=== PATIENT | female | born 1960 | race Caucasian/White ===

== ENCOUNTER → 2018-03-08 07:15 | Outpatient (CLI) | payer MEDICAID, SELFPAY ==
--- NOTE | 2018-03-08 10:50 | NEURO_ITS ---
NCS and/or EMG Patient Report Ordering Doctor: Glenda Saldaña DATE OF SERVICE: 03/08/18 This is a bilateral upper extremity nerve conduction study performed on this 58- year-old female with a history of burning and tingling in her fingers and hands and cold sensation in her hands. The symptoms awaken her from sleep at night and have improved to some extent with wrist braces. Symptoms have been present for approximately 1-1/2 years. There is no neck pain. Symptoms are worse on the right side. Bilateral upper extremity sensory and motor nerve conduction study is performed demonstrating prolongation of the median motor and sensory responses bilaterally worse on the right side, with mild reduction in amplitude and conduction velocities. The ulnar motor and sensory and radial sensory responses are normal. The median F-wave latencies are bilaterally prolonged, worse on the right. Right upper extremity needle electromyography is performed. Muscles evaluated included the first dorsal interosseous, abductor pollicis brevis, brachioradialis, biceps, triceps and deltoid muscles. All muscles demonstrated normal insertional activity with absence of pathologic spontaneous activity. Motor unit potential recruitment pattern and amplitude is normal in all muscles tested. Impression: Abnormal nerve conduction study and EMG of the upper extremities consistent with moderate to severe carpal tunnel syndrome bilaterally worse on the right side.
== END ==
PROVIDERS: Family Provider Family Medicine; PCP Family Medicine; Visit Provider Nurse Practitioner Adult Health
DX: R20.0 Anesthesia of skin (principal); R20.2 Paresthesia of skin
CPT/HCPCS: 95886; 95911

== ENCOUNTER 2018-06-22 12:14 | Emergency (ER) | payer MEDICAID, SELFPAY ==
[2018-06-22 12:15] VITALS: BP 159/109; PULSE 82; RESP 18; TEMP 36.6; O2SAT 99; BMI 36.1
--- NOTE | 2018-06-22 12:39 | VDUE_ITS ---
Reason For Study: LUE pain Left Proximal Left jugular vein is spontaneous, widely patent, phasic, with no intraluminal echogenicity noted. Left subclavian vein is spontaneous, widely patent, phasic, with no intraluminal echogenicity noted. Left Arm Left axillary vein is spontaneous, patent, phasic, competent, compressible and demonstrates augmentation. Left brachial vein is compressible. Left cephalic vein is compressible. Left basilic vein is compressible. Left Lower Arm Left radial vein is compressible. Left ulnar vein is compressible. Interpretation Summary No evidence for acute deep venous thrombosis[left] upper extremity with patent and compressible cephalic and basilic veins. Ordering Physician: Brian Rey Referring Physician: Rolan Ospina Performed By: Ciara Ramesh RVT ?
[2018-06-22 12:49] VITALS: BP 148/95; PULSE 80; RESP 14; O2SAT 98
[2018-06-22] MEDS: Acetaminophen 500 MG Tablet 1000 MG PO (12:57)
--- NOTE | 2018-06-22 13:29 | ED.DCSUM_ITS ---
- ER Visit Summary Date of Service: 06/22/18 Chief Complaint: Fall History of Present Illness: The patient is a [address] Fred ledesma. She reports that 2 days ago she tripped over an uneven sidewalk and landed on left side. She hit her chin on the ground. She reports she has pain there that is 10 out of 10 severity. She has dentures. She reports that they are fitting normally. She denies any malocclusion. No loss of consciousness. She is not on blood thinners. Patient reports that she has left shoulder pain is 8 out of 10 severity. She is concerned because she has redness to her left humerus that began today. Physical Examination: Vitals: Stable. Afebrile. Head: Contusion to the left side of the mentum of her chin. Minimal pain with palpation. No pain with palpation of the angle of her mandible or her TM joints bilaterally. Neck: No vertebral tenderness. Full ROM without difficulty. Cleared by NEXUS criteria. Mild tenderness palpation to the paraspinous musculature on the left. Back: No vertebral tenderness. General: A&O x 3. NAD. Cardiovascular exam: Regular rate and rhythm, no murmur, rub or gallop. Respiratory exam: Chest nontender. No crepitus. Clear to auscultation bilaterally. No wheezes or stridor. Abdominal exam: Soft, nontender, nondistended, normal bowel sounds. No pain in RUQ or LUQ specifically. No peritoneal signs. Extremity: Erythema over the lateral portion of her proximal right bicep. There is warmth present here. She has minimal pain with range of motion. She is neurovascular intact distal sensation light touch less than 2-second catheter refill. No pain with range of motion. Test Results: Patient refused an x-ray. She had a left upper extremity Doppler that was negative. Emergency Department Course and Treatment: Patient was treated with Tylenol and Keflex. She refused stronger pain medications. Treatment Plan: Patient will be discharged on Keflex and instructed to follow-up with her primary care physician in 2 days for a wound check. Return to the emergency department for any worsening symptoms. Disposition: To home in improved and stable condition. Impression: 1. Mechanical fall. 2. Contusion to chin. 3. Cellulitis left arm. This note was generated with [employer] software. It may contain incorrect words, spelling, and punctuation that were not noted in review of the chart prior to signing ED Disposition - Plan for ED Patient: Disposition: Home or Assisted Living Chief Complaint: Fall Instructions: ED Infec Skin Cellulitis Prescriptions: Cephalexin [Keflex] 500 mg PO Q6 #40 capsule Referrals: Kamlesh Ospina MD [Primary Care Provider] - 2 Days for wound check
[2018-06-22 13:34] VITALS: BP 142/80; PULSE 82; RESP 14; O2SAT 98
[2018-06-22] MEDS: Cephalexin 500 MG Capsule PO (13:38)
== END 2018-06-22 13:57 | disposition home or self-care (01) ==
LOC: ED 13:50
PROVIDERS: Emergency Provider Emergency Medicine; Family Provider Family Medicine; PCP Family Medicine
DX: S00.83XA Contusion of other part of head, initial encounter (principal); L03.114 Cellulitis of left upper limb; W01.198A Fall on same level from slipping, tripping and stumbling with subsequent striking against other object, initial encounter; Y93.89 Activity, other specified; Y92.480 Sidewalk as the place of occurrence of the external cause; Y99.9 Unspecified external cause status; E11.9 Type 2 diabetes mellitus without complications; I10 Essential (primary) hypertension; F17.200 Nicotine dependence, unspecified, uncomplicated
CPT/HCPCS: 93971; 99283

== ENCOUNTER 2018-11-15 20:30 | Emergency (ER) | payer MEDICAID, SELFPAY ==
[2018-11-15 20:31] VITALS: BP 159/87; PULSE 70; RESP 18; TEMP 36.7; O2SAT 97; BMI 37.3
--- NOTE | 2018-11-15 20:33 | RAD_ITS ---
STUDY: X-RAY - RIGHT HAND REASON FOR EXAM: Female, 58 years old. Pain TECHNIQUE: 3 view(s) of the hand. COMPARISON: None. FINDINGS: There is no evidence of fracture or dislocation. There are no significant degenerative changes. There are no radiodense foreign bodies. RAD/Hand Min 3 Views IMPRESSION: No fracture or dislocation. Electronically Signed: Marky Hannah, at 21:45 EDT Tel , Service support ,
--- NOTE | 2018-11-15 20:45 | RAD_ITS ---
STUDY: X-RAY - RIGHT RADIUS AND ULNA REASON FOR EXAM: Female, 58 years old. Pain TECHNIQUE: 2 view(s) of the forearm. COMPARISON: None. FINDINGS: There is no evidence of fracture or dislocation. There are no significant degenerative changes. There are no radiodense foreign bodies. RAD/Forearm 2 Views IMPRESSION: No fracture or dislocation. Electronically Signed: Marky Hannah, at 21:44 EDT Tel , Service support ,
--- NOTE | 2018-11-15 21:45 | ED.VISSUMM ---
- ER Visit Summary Date of Service: 11/15/18 Chief Complaint: [Right arm pain] History of Present Illness: The patient is a 58 F [presents with right arm pain that started 4 days ago. Patient denies any trauma. Patient states that she had carpal tunnel surgery on September [address] Lauro Otoole to her right wrist. Patient states that she is been back to work and she has been wearing her braces. Patient describes a pain from her fingertips to the elbow and just onto the upper arm. She describes a burning sensation. Patient states that sometimes it feels like there is a catching when she flexes her wrist and extends it. She denies any fevers. She denies any chest pain or shortness of breath.] Physical Examination: [HEENT-PERRLA, EOMI. Cranial nerves II through XII grossly intact. TMs clear. Mucous membranes moist. No adenopathy. Cardiovascular-regular rate and rhythm without murmur or ectopy Lungs-clear to auscultation, chest wall stable without crepitus or subcu emphysema Abdomen-normoactive bowel sounds, soft, nontender, no rebound or rigidity, no peritoneal signs. Extremities-intact ?4, normal range of motion, normal pulses, atraumatic]. Right arm-patient has diffuse tenderness about the forearm, wrist, and hand. There is no edema or erythema. She is neurovascularly intact. She has a well-healed carpal tunnel scar to the volar aspect of the palmar ligament. Test Results: [X-rays of the right forearm were ordered by the nursing staff via protocol which were read by radiology as normal.] I do not feel her exam is concerning for DVT. Emergency Department Course and Treatment: [Patient will be given a prescription for [place]. Patient advised to follow-up with her orthopedic surgeon within the next 3-5 days. Patient advised to continue using her splints.] Treatment Plan: [Follow-up with orthopedics patient given a prescription for [employer] [place].] Disposition: [Discharged home in stable condition.] Impression: [Right arm pain-etiology uncertain] This note was generated with [employer] software. It may contain incorrect words, spelling, and punctuation that were not noted in review of the chart prior to signing ED Disposition - Plan for ED Patient: Referrals: Kamlesh Ospina MD [Primary Care Provider] -
--- NOTE | 2018-11-15 22:01 | ED.DCSUM_ITS ---
- ER Visit Summary Date of Service: 11/15/18 Chief Complaint: [Right arm pain] History of Present Illness: The patient is a 58 F [presents with right arm pain that started 4 days ago. Patient denies any trauma. Patient states that she had carpal tunnel surgery on September [address] Lauro Otoole to her right wrist. Patient states that she is been back to work and she has been wearing her braces. Patient describes a pain from her fingertips to the elbow and just onto the upper arm. She describes a burning sensation. Patient states that sometimes it feels like there is a catching when she flexes her wrist and extends it. She denies any fevers. She denies any chest pain or shortness of breath.] Physical Examination: [HEENT-PERRLA, EOMI. Cranial nerves II through XII grossly intact. TMs clear. Mucous membranes moist. No adenopathy. Cardiovascular-regular rate and rhythm without murmur or ectopy Lungs-clear to auscultation, chest wall stable without crepitus or subcu emphysema Abdomen-normoactive bowel sounds, soft, nontender, no rebound or rigidity, no peritoneal signs. Extremities-intact ?4, normal range of motion, normal pulses, atraumatic]. Right arm-patient has diffuse tenderness about the forearm, wrist, and hand. There is no edema or erythema. She is neurovascularly intact. She has a well- healed carpal tunnel scar to the volar aspect of the palmar ligament. Test Results: [X-rays of the right forearm were ordered by the nursing staff via protocol which were read by radiology as normal.] I do not feel her exam is concerning for DVT. Emergency Department Course and Treatment: [Patient will be given a prescription for [place]. Patient advised to follow-up with her orthopedic surgeon within the next 3-5 days. Patient advised to continue using her splints.] Treatment Plan: [Follow-up with orthopedics patient given a prescription for [place].] Disposition: [Discharged home in stable condition.] Impression: [Right arm pain-etiology uncertain] This note was generated with [employer] software. It may contain incorrect words, spelling, and punctuation that were not noted in review of the chart davida or to signing ED Disposition - Plan for ED Patient: Referrals: Kamlesh Ospina MD [Primary Care Provider] -
--- NOTE | 2018-11-15 22:03 | DCINST.ED_ITS ---
ED Disposition - Plan for ED Patient: Instructions: ED Neuropathy Peripheral Prescriptions: Hydrocodone Bitart/Apap 5-325 [[place] 5MG-325MG] 1 tab PO Q4H PRN PRN 2 Days #10 tab PRN Reason: Pain Referrals: Kamlesh Ospina MD [Primary Care Provider] - Lauro Otoole MD [STAFF PHYSICIAN] - 3-5 Days
--- NOTE | 2018-11-15 22:04 | DCINST.ED_ITS ---
ED Disposition - Plan for ED Patient: Instructions: ED Neuropathy Peripheral Prescriptions: Hydrocodone Bitart/Apap 5-325 [[place] 5MG-325MG] 1 tab PO Q4H PRN PRN 2 Days #10 tab PRN Reason: Pain Referrals: Lauro Otoole MD [STAFF PHYSICIAN] - 3-5 Days Kamlesh Ospina MD [Primary Care Provider] -
[2018-11-15] MEDS: HYDROcodone Bitartrate/Apap 5/325 Tablet PO (22:20)
[2018-11-15 22:21] VITALS: BP 150/98; PULSE 78; RESP 15; O2SAT 100
== END 2018-11-15 22:22 | disposition home or self-care (01) ==
LOC: ED 21:56
PROVIDERS: Emergency Provider Emergency Medicine; Family Provider Family Medicine; PCP Family Medicine
DX: M79.641 Pain in right hand (principal); M25.531 Pain in right wrist; M79.631 Pain in right forearm; E11.9 Type 2 diabetes mellitus without complications; Z79.84 Long term (current) use of oral hypoglycemic drugs; Z79.899 Other long term (current) drug therapy; Z72.0 Tobacco use
CPT/HCPCS: 73090; 73130; 99282

== ENCOUNTER → 2018-12-06 12:50 | Outpatient (CLI) | payer MEDICAID, SELFPAY ==
[2018-11-15 20:31] VITALS: BMI 37.3
--- NOTE | 2018-12-06 12:55 | VDLE_ITS ---
Reason For Study: RLE PAIN RIGHT LEFT GSV is normal. CFV is compressible, spontaneous, phasic, CFV is compressible, spontaneous, phasic, competent, and demonstrates normal competent and demonstrates normal augmentation. augmentation. FV is compressible, spontaneous, phasic, competent and demonstrates normal augmentation. POP V is compressible, spontaneous, phasic, competent and demonstrates normal augmentation. T/P Trunk is compressible. PTV is compressible. RT PerV is compressible. Procedure Exam performed portable in patient room. A preliminary report was called and/or faxed to Glenda Saldaña DIRECTOR OF PARTNER MARKETING @ 140 pm @ [phone]. Interpretation Summary There is no evidence of right lower extremity deep vein thrombosis. Right greater saphenous vein appears patent and compressible segmentally. Normal flow patterns left common femoral vein. Ordering Physician: Glenda Saldaña Referring Physician: Rolan Ospina Performed By: Haylee Cagle, MATTHEW, RVT
== END ==
PROVIDERS: Family Provider Family Medicine; PCP Family Medicine; Referring Provider Nurse Practitioner Adult Health; Visit Provider Nurse Practitioner Adult Health
DX: M79.604 Pain in right leg (principal)
CPT/HCPCS: 93971

== ENCOUNTER 2020-02-19 18:55 | Emergency (ER) | payer BC, SELFPAY ==
[2020-02-19 18:56] VITALS: BP 157/119; PULSE 81; RESP 15; TEMP 36.7; O2SAT 96; BMI 35.8
--- NOTE | 2020-02-19 19:54 | ED.VISSUMM ---
- ER Visit Summary Date of Service: 02/19/20 Chief Complaint: Foreign body right ear History of Present Illness: The patient is a 59 F Pap smear history diabetes hypertension. Has a piece of her hearing aid stuck in her right ear. This occurred today. No other complaints. Physical Examination: Appearing middle-aged female no distress vital signs stable afebrile. H EENT exam right ear canal on the proximal end she has a piece of rubber stopper from a hearing aid. Otherwise no signs of trauma. I was able to easily remove that with a curved forcep patient tolerated procedure well. After removal there was no signs of trauma or bladder bleeding. No signs of infection. TM was intact. Otherwise exam unremarkable. Lungs are clear. Heart regular rhythm. Test Results: None Emergency Department Course and Treatment: Right ear canal foreign body removal Treatment Plan: If pain follow-up. Disposition: Discharge Impression: Right ear canal foreign body (part of the hearing aid) removal by ER This note was generated with [employer] dictation software. It may contain incorrect words, spelling, and punctuation that were not noted in review of the chart prior to signing ED Disposition - Plan for ED Patient: Referrals: Kamlesh Ospina MD [Primary Care Provider] -
--- NOTE | 2020-02-19 19:55 | ED.DEP ---
ED Disposition - Plan for ED Patient: Disposition: Home or Assisted Living Instructions: ED EAR CANAL Foreign Body Referrals: Kamlesh Ospina MD [Primary Care Provider] - As Needed Additional Instructions: Follow-up if pain, swelling or drainage.
== END 2020-02-19 19:59 | disposition home or self-care (01) ==
PROVIDERS: Emergency Provider Emergency Medicine; PCP Family Medicine
DX: T16.1XXA Foreign body in right ear, initial encounter (principal); W45.8XXA Other foreign body or object entering through skin, initial encounter; Y93.9 Activity, unspecified; Y92.89 Other specified places as the place of occurrence of the external cause; Y99.9 Unspecified external cause status; E11.9 Type 2 diabetes mellitus without complications; I10 Essential (primary) hypertension; Z72.0 Tobacco use
CPT/HCPCS: 99283

== ENCOUNTER 2022-10-07 12:23 | Emergency (ER) | payer OTHER, SELFPAY ==
[2022-10-07 12:24] VITALS: BP 184/108; PULSE 95; RESP 16; TEMP 36; O2SAT 95
[2022-10-07 12:43] VITALS: BMI 35.4
--- NOTE | 2022-10-07 13:06 | EKG12_ITS ---
Test Reason : Blood Pressure : / mmHG Vent. Rate : 072 BPM Atrial Rate : 072 BPM P-R Int : 128 ms QRS Dur : 088 ms QT Int : 398 ms P-R-T Axes : 005 007 039 degrees QTc Int : 435 ms Normal sinus rhythm Nonspecific T wave abnormality Abnormal ECG Confirmed by JAIDEN JENKINS, DENI ([id number]), publications editor BRYSON ZULETA ([id number]) on 10/11/2022 11:05:17 AM Referred By: SHASHANK Confirmed By:DENI HWANG MD
--- NOTE | 2022-10-07 13:11 | EDS_ITS ---
HPI HPI - GI History of Present Illness Chief Complaint: Abd Pain Detail of Chief Complaint: Per predominately epigastric pain that started approximate 2 monts ago wors Informant: patient Abdominal Pain/Flank Pain Onset: Month(s) Context: Sudden Onset Timing: Intermittent and Waxes and wanes Quality: Aching and Cramping Location: Epigastric, RUQ and LUQ Current Severity: Mild Maximum Severity: Severe Worsened by: Food, Movement and - (Palpation) Relieved by: Nothing Nausea/Vomiting/Emesis GI Symptom: Positive for Nausea; Negative for Vomiting Diarrhea/Melena/Hematochezia GI Symptom: Negative for Diarrhea, Melena or Hematochezia Associated Symptoms Associated Symptoms: Negative for Dysuria, Frequency, Hematuria or Urgency Narrative Narrative: Patient is a 62-year-old woman with history of hypertension, type 2 diabetes, hypercholesterolemia who presents with a 2 to 3-month history of abdominal pain predominantly in the upper abdomen. Pain got worse over the last 2 to 3 weeks. Has increased over the past 2 to 3 days. She localizes it predominantly to the epigastric area. She denies history of peptic ulcer disease. She may have history of reflux with esophagitis. She denies black or maroon-colored stool. She states last evening she took Pepto-Bismol with no relief. She states she drove herself to the emergency department. She has had 2 C-sections. Her appendix and gallbladder have not been removed. She reports elevated temperature. She denies chills. She denies headache, visual, ocular auditory symptoms. She denies cardiac or respiratory symptoms. She denies hematemesis or coffee-ground emesis. She denies dysuria, frequency, urgency or hematuria. She denies history of renal or ureterolithiasis. Prior similar symptoms: No Recent Illness/Hospitalization: No PFSH PFSH Medical History no medical history no medical history (Documented in the HPI narrative.) Home Medications topiramate 25 mg tablet 50 mg PO DAILY 05/29/16 [History Last Taken 05/28/16 22:30] atorvastatin 20 mg tablet 40 mg PO QHS 09/13/16 [History Last Taken Unknown] duloxetine 30 mg capsule,delayed release 30 mg PO DAILY 09/13/16 [History Last Taken Unknown] lisinopril 5 mg tablet 5 mg PO DAILY 09/13/16 [History Last Taken Unknown] metformin 500 mg 24 hr tablet,extended release 500 mg PO DAILY 09/13/16 [History Last Taken Unknown] vitamin B complex 1 ea PO DAILY 09/13/16 [History Last Taken Unknown] omeprazole magnesium 20 mg tablet,delayed release (Prilosec OTC) 20 mg PO BID 10 days #20 tabs 10/07/22 [Rx Last Taken Unknown] Allergy/AdvReac Type Severity Reaction Status Date / Time Penicillins [PCN] Allergy Unknown Verified 02/19/20 18:56 codeine AdvReac Nausea/Vom/ Verified 02/19/20 18:56 Diarrhea Surgical History (Updated 10/07/22 @ 13:[address] Nikhil Guillen MD) Previous section Social History (Updated 10/07/22 @ 13:[address] Nikhil Guillen MD) household members: none Smoking Status: Current every day smoker tobacco type: cigarettes substance use type: does not use ROS ROS ED Constitutional Constitutional ED: Denies chills, sweats or weight loss ENT ENT ED: Denies ear pain, rhinorrhea or sore throat Cardiovascular Cardiovascular: Denies chest pain, orthopnea, palpitations, paroxysmal nocturnal dyspnea or racing heartbeat Respiratory/Chest Respiratory/Chest: Denies cough, dyspnea, dyspnea on exertion, orthopnea or paroxysmal nocturnal dyspnea Gastrointestinal Gastrointestinal: Reports abdominal pain and nausea; Denies constipation, diarrhea or melena Genitourinary Genitourinary ED: Denies dysuria, hematuria or urinary frequency Musculoskeletal Musculoskeletal: Denies arthralgias, back pain, myalgias or neck pain Integumentary Denies Abrasions or rash Neurologic Neurologic: Denies headache(s), paresthesias or weakness Psychiatric Psychiatric: Denies anxiety or depression Endocrine Endocrinology: Denies polydipsia, polyphagia or polyuria Hematologic/Lymphatic Hematologic/Lymphatic: Denies easy bleeding or easy bruising EXAM Physical Exam Const Vital Signs: 10/07/22 12:24 Temperature 96.8 F L Temperature Source Temporal Pulse Rate 95 Respiratory Rate 16 Blood Pressure 184/108 H Blood Pressure Mean 133 Pulse Ox 95 Oxygen Delivery Method Room Air Positive well nourished, well developed and obese Constitutional Narrative: Patient does not appear well. She does not appear toxic. General Appearance ED: well developed; Negative for NAD or pallor Nutritional Appearance: obese HEENT Reports TM's clear and moist mucous membranes HEENT Narrative: Nares patent. Posterior pharynx out erythema or exudate. normocephalic and atraumatic Tympanic Membrane ED: Yes TM's clear Eyes PERRL and EOMs intact bilaterally General Eye ED: Negative for pale conjunctiva or scleral icterus Neck no lymphadenopathy, supple and no JVD Resp normal respiratory effort and clear to auscultation bilaterally Cardio regular rate, regular rhythm, S1 normal heart sound, S2 normal heart sound and no murmurs GI non-distended and no masses; Negative for non-tender Inspection: Negative for abdominal distention Auscultation: hypoactive bowel sounds Palpation: soft, tender epigastric and LUQ and guarding LUQ; Negative for hepatomegaly, splenomegaly, hernia, mass, pulsatile mass or rebound tenderness present Back/Spine no CVA tenderness Extremity full ROM General Extremety ED: Negative for edema or tenderness General Extremity: Negative for edema Neuro CN's II-XII intact bilaterally, moves all extremities and no sensory deficits noted Sensorium / Orientation: alert Psych mental status grossly normal and thought process normal Skin no wounds General Skin Exam: Negative for jaundice or pallor Lesions: no lesions Rashes: no rashes MDM MDM MDM Narrative Medical decision making narrative: Prior records are predominantly ER records. There is at office visit by Dr. Marx for akathisia. This is not pertinent or relevant to patient's presentation. Differential diagnosis would include GERD, esophagitis, gastritis, peptic ulcer disease, biliary disease, pancreatitis since pain is predominately left upper quadrant. To evaluate but she was medicated with Pepcid since she drove her self to the emergency department. Liver, lipase, CBC and electrolyte panel were obtained. The [place] panel was obtained to assess glucose and anion gap as well as renal function. Liver and lipase to assess for biliary disease and pancreatitis. CBC to assess white count differential. Lab Data Attestation: I reviewed the patient's lab results. Lab results narrative: CBC reveals elevated H&H of 59 and 47.2. Comprehensive metabolic panel reveals slight elevation in glucose of 120. BUN is elevated 27 with a BUN/creatinine ratio of 2091. GFR is normal. Lactate is normal. Transaminases are normal. Lipase is normal. Labs: Laboratory Results - last 24 hr 10/07/22 10/07/22 10/07/22 12:39 12:39 13:18 WBC 7.2 RBC 5.29 Hgb 15.9 H Hct 47.2 H MCV 89.2 MCH 30.1 MCHC 33.7 RDW Std Deviation 43.0 RDW Coeff of Shyanne 13.2 Plt Count 274 MPV 10.5 Immature Gran % (Auto) 0.100 Neut % (Auto) 62.1 Lymph % (Auto) 26.6 [place] % (Auto) 10.2 H Eos % (Auto) 0.7 Baso % (Auto) 0.3 Absolute Neuts (auto) 4.5 Absolute Lymphs (auto) 1.91 Nucleated RBC % 0 Sodium 142 Potassium 3.7 Chloride 107 Carbon Dioxide 26.0 Anion Gap 9 BUN 27 H Creatinine 0.93 Estim Creat Clear Calc 52.55 Est GFR (MDRD) Af Amer 78 Est GFR (MDRD) Non-Af 65 BUN/Creatinine Ratio 28.9 H Glucose 120 H Lactic Acid 1.7 Calcium 10.5 H Total Bilirubin 0.30 Direct Bilirubin 0.08 AST 15 ALT 25 Alkaline Phosphatase 68 Total Protein 8.3 H Albumin 4.0 Globulin 4.3 H Lipase 151 Treatment and Re-Evaluation Narrative: Patient was informed of her laboratory results at 1545. Patient is sitting up smiling. Her pain is resolved. She was informed of results. Suspect this is due to peptic ulcer disease. She was referred to Dr. Albarran and she does not see a audience development manager. She also was prescribed PPI. Patient is planned restricts what meds can be given. Meds that were on formulary for patient's insurance plan and still received a popup that states not covered. Discharge Plan Triage Chief Complaint: Abd Pain ED Provider: Nikhil Guillen Dx/Rx/DC Orders Clinical Impression: Concern about peptic ulcer disease without diagnosis, Acute epigastric pain, Type 2 diabetes mellitus, Hypertension Instructions: ED Epigastric Pain Uncertain Cause Prescriptions: New omeprazole magnesium [Prilosec OTC] 20 mg tablet,delayed release (DR/EC) 20 mg PO BID 10 Days Qty: 20 0RF No Action topiramate 25 MG tablet 50 mg PO DAILY Label Comments: MIGRAINE atorvastatin 20 MG tablet 40 mg PO QHS lisinopril 5 MG tablet 5 mg PO DAILY vitamin B complex 1 EACH capsule 1 ea PO DAILY duloxetine 30 MG capsule 30 mg PO DAILY metformin 500 MG tablet,ER stacey.retention 24 hr 500 mg PO DAILY Primary Care Provider: Shaneka Brady Referrals: Kamlesh Ospina MD [Non-Staff] - Friend,Heber, DO [Med Staff - Active Staff] - 1-2 Weeks Disposition Disposition: Home, Self Care
[2022-10-07] MEDS: Famotidine 200 MG/20 ML MDV 20 MG in 0.9% Normal Saline (Pres. free 8 ML 300 MG IV (13:31)
[2022-10-07 13:32] LABS: Absolute Lymphocyte Count 1.91 X10^3/uL (0.83-4.51); Absolute Neutrophil Count 4.5 X10^3/uL (2.0-7.7); Basophil# 0.02 X10^3/uL; Basophil% 0.3 % (0-1); Eosinophil# 0.05 X10^3/uL; Eosinophils% 0.7 % (0-5); Hematocrit 47.2 % (37-47); Hemoglobin 15.9 g/dL (12.0-15.0); Lymphocyte # 1.91 X10^3/ul (0.83-4.51); Lymphocyte % 26.6 % (19-41); Mean Corp Hgb Conc 33.7 g/dL (32-36); Mean Corpuscular Hgb 30.1 pg (27.0-32.0); Mean Corpuscular Volume 89.2 fL (81-99); Mean Platelet Vol. 10.5 fl (6.2-12.0); Monocyte# 0.73 X10^3/uL; Monocyte% 10.2 % (0-10); NRBC Flagged by Analyzer 0 % (0-5); Neutrophil # 4.46 X10^3/uL (2.7-7.7); Neutrophil % 62.1 % (47-70); Platelet Count 274 K/mm3 (150-450); RBC Distribution Width CV 13.2 % (11.6-14.6); Red Blood Count 5.29 M/mm3 (4.2-5.4); White Blood Count 7.2 K/mm3 (4.4-11.0)
[2022-10-07 13:41] LABS: AST(SGOT) 15 U/L (15-37); Alanine Aminotransfer ALT/SGPT 25 U/L (13-56); Alkaline Phosphatase 68 U/L (45-117); Anion Gap 9 (5-15); BUN 27 mg/dL (7-18); BUN/Creat Ratio 28.9 RATIO (10-20); Bilirubin, Direct 0.08 mg/dL (0.00-0.30); Calcium,Total 10.5 mg/dL (8.5-10.1); Chloride 107 mmol/L (98-107); Creatinine, Serum 0.93 mg/dL (0.55-1.02); EST Glomerular Filtration Rate 65 mL/min (>60); Est Glom Filt Rate - Afr Amer 78 mL/min (>60); Estimated Creatinine Clearance 52.55 ml/min; Globulin 4.3 g/dL (2.2-4.2); Glucose 120 mg/dL (74-106); Lipase 151 U/L (73-393); Potassium 3.7 mmol/L (3.5-5.1); Protein, Total 8.3 g/dL (6.4-8.2); Sodium Level 142 mmol/L (136-145)
[2022-10-07 13:53] LABS: Lactic Acid 1.7 mmol/L (0.4-1.9)
[2022-10-07] MEDS: Ondansetron 4 MG/2 ML Vial IV (15:07)
[2022-10-07 16:43] VITALS: BP 134/77; PULSE 62; RESP 15; O2SAT 98
== END 2022-10-07 16:44 | disposition home or self-care (01) ==
PROVIDERS: Emergency Provider Emergency Medicine; PCP Internal Medicine; Visit Provider Emergency Medicine
DX: R10.13 Epigastric pain (principal); E11.9 Type 2 diabetes mellitus without complications; E78.00 Pure hypercholesterolemia, unspecified; I10 Essential (primary) hypertension; R19.7 Diarrhea, unspecified; F17.210 Nicotine dependence, cigarettes, uncomplicated; E66.9 Obesity, unspecified
CPT/HCPCS: 80048; 80076; 83605; 83690; 85025; 93005; 96374; 96375; 99283; A4216; J2405; J3490

== ENCOUNTER 2022-11-12 06:58 | Day surgery (SDC) | payer OTHER, SELFPAY ==
[2022-11-12] VITALS (8 sets, daily range): BP systolic 120–155; BP diastolic 80–89; PULSE 74–99; RESP 16–18; TEMP 36.6–36.9; O2SAT 90–97; BMI 37.1
--- NOTE | 2022-11-12 07:29 | HP.PCM_ITS ---
History and Physical Date of Admission: 11/12/22 Date of Service:? 11/04/22 MR#: [id number] Acct: [id number] Name:ADELINA GRAF Rep #: [id number] : 1960 ? ? Provider: Dr. Hilda Varela MD Age/Sex:? 62/F ? ? Location: [facility] [place] Status: Signed Intake Vital Signs ? 10/07/2311:24 11/04/2308:41 Height 5 ft 3 in 5 ft 2 in Weight: ? 204 lb 4 oz BMI ? 37.3 BP 184/108 H 138/81 H Blood Pressure Location ? Rt brachial Position ? Sitting Respiration 16 18 Pulse 95 87 Pulse Source ? NIBP Temp 96.8 F L 98.3 F Temp Source Temporal Temporal Pulse Oximetry (%) 95 97 Oxygen Delivery Method ? room air Intake Visit Reasons:?GALLBLADDER Chief Complaint: gall stones Dispatcher Tugboat Required: No Is patient in pain?: No Allergies Penicillins [PCN] Allergy (Verified 11/04/22 09:34) Unknowncodeine Adverse Reaction (Verified 11/04/22 09:34) Nausea/Vom/Diarrhea Medications topiramate 25 mg tablet 50 mg PO DAILY 05/29/16 [History Confirmed 11/04/22] atorvastatin 20 mg tablet 40 mg PO QHS 09/13/16 [History Confirmed 11/04/22] vitamin B complex 1 ea PO DAILY 09/13/16 [History Confirmed 11/04/22] omeprazole magnesium 20 mg tablet,delayed release (Prilosec OTC) 20 mg PO BID 10 days #20 tabs 10/07/22 [Rx Confirmed 11/04/22] dulaglutide 1.5 mg/0.5 mL subcutaneous pen injector (Trulicity) ml subcut 11/04/22 [History Confirmed 11/04/22] nicotine 21 mg/24 hr daily transdermal patch 1 patch transdermal DAILY 11/04/22 [History Confirmed 11/04/22] ondansetron 4 mg disintegrating tablet 4 mg PO BID PRN 11/04/22 [History Confirmed 11/04/22] venlafaxine 150 mg capsule,extended release 24 hr 150 mg PO DAILY 11/04/22 [History Confirmed 11/04/22] Is last menstrual period known: No Post menopausal: Yes Patient : No PFSH Medical History?(Updated 11/04/22 @ 13:[address] Hilda Varela MD) Depression Diabetes Osteoarthritis Surgical History?(Updated 11/04/22 @ 09:40 by Jasmin Farmer) History of bladder repair surgery History of colonoscopy (~2020) History of ear surgery History of facial surgery History of left salpingo-oophorectomy (~1991) History of tonsillectomy Hx of hand surgery Previous section Family History?(Updated 11/04/22 @ 09:40 by Jasmin Farmer) Father Cancer Diabetes HypertensionDaughter Thyroid disorder Seizures Bleeding disorder Social History?(Updated 10/07/22 @ 13:[address] Nikhil Guillen MD) household members:? none Smoking Status:? Current every day smoker tobacco type: cigarettes substance use type:? does not use HPI HPI HPI: 62-year-old female presents due to cholelithiasis, epigastric pain.? Patient initially seen in the ER with epigastric pain nausea and vomiting patient states that pain started about 10 AM on the day of the ER visit patient ate at 6 AM previous to that.? Patient states she was having nausea vomiting at night and having an acid taste/nausea for months previous.? Patient states she was taking Pepto-Bismol regularly August through September.? Patient had increased epigastric pain at that time.? Currently patient states when he has some soreness in the epigastric region as she is currently on omeprazole 40 mg p.o. daily and famotidine 10 mg nightly.? Patient had an EGD about 20 years ago.? At that time she was having possible bowel obstruction some dysphagia symptoms.? Patient states she has bowel movements every other day and they are formed.? Patient did have a gallbladder ultrasound which showed multiple gallstones and a fatty liver and showed a 3 mm wall per report. ROS General General: Yes fatigue; No weight change, appetite, colon cancer, breast cancer or weakness HEENT HEENT: No difficulty swallowing, eye injury, eye surgery, swollen glands or hoarseness Endo Endocrine: Yes diabetes mellitus; No thyroid disease, thyroid cancer, Hair loss, heat intolerance or cold intolerance Musc Musculoskeletal: Yes arthritis; No back problems, rheumatoid arthritis, gout or joint pain Cardio Cardiovascular: No murmur, pacemaker, heart disease, atrial fibrillation, high blood pressure, heart attack, heart stent, palpitations, shortness of breat with exertion or chest pain Psych Psychiatric: Yes depression; No anxiety or hearing voices Resp Respiratory: No shortness of breath, No sleep apnea, No cough, No COPD, No asthma, No emphysema and No wheezing Gastro Gastrointestinal: Yes abdominal pain, Yes nausea or vomiting, Yes diarrhea, No constipation, No blood in stool, Yes acid reflux, No hemorrhoids, No ulcers, Yes gallbladder problem and No black,tarry stools Talib Hematologic: No blood thinners, No blood disorders, No bleeding, No anemia and No blood clots Neuro Neurologic: No weakness Exam Const General: cooperative, healthy appearing and no acute distress HENWI Head: normal to inspection Resp Effort & Inspection: normal respiratory effort Cardio Rate: regular rate GI Inspection: non-distended Palpation: soft, no guarding, no hernias and tender in the epigastrum (Mild) and in the LUQ (Mild) Skin General: no rashes or lesions noted Neuro General: patient oriented x3 Extrem General: no clubbing, cyanosis or edema Psych Affect: normal affect Assessment and Plan Assessment and Plan (1) GERD (gastroesophageal reflux disease): ?Status:?Acute (2) Epigastric abdominal pain: ?Status:?Acute (3) LUQ abdominal pain: ?Status:?Acute (4) Gallstones: ?Status:?Acute Plan Did personally reviewed ultrasound as well as reviewed with patient. Discussed with patient that her symptoms sound more like stomach in etiology as the pain occurs in the middle of the night or before she is even eaten.? Patient has been on omeprazole and famotidine and the pain has been improved.? Patient has not needed Zofran for 2 weeks.? Patient denies any history of right upper quadrant epigastric pain about an abnormal her hour after eating fatty or greasy foods.? Patient is able to eat cheese with no issue almond milk no issue. I have discussed the above with the patient. I have offered the patient esophagogastroduodenoscopy for evaluation. I have explained the risks/benefits of the procedure and described the procedure.? I have discussed the risks with the patient, including but not limited to:? infection, bleeding, perforation of the GI tract requiring adrianne rgency surgery, inability to complete the procedure, injury to any internal organs, complications of anesthesia, etc. - the patient understands and agrees to proceed. I have answered all the patient's questions to the patient's satisfaction and the patient has no further questions. Did review the symptoms of gallbladder disease with the patient.? Discussed that she could have both issues as well currently I do think her stomach is causing more of her issues.? We will plan to do an EGD--- if she still continues to have symptoms would possibly consider taking on her gallbladder due to the large stones as well as diabetic. Reviewed the anatomy with the patient and discussed the procedure: laparoscopic cholecystectomy with possible cholangiograms, possible open. Review risks incl uding but not limited to bleeding, infection, hernia, bile leak, retained gallstones requiring another procedure ERCP- Endoscopic Retrograde Cholangiopancreatography, injury to another organ (bile ducts, common bile duct, small bowel, etc.) and conversion to an open procedure. All questions were answered. Hilda Varela M.D. Pager: [phone] [facility] [address] [place] [address], [address] [place] [address] Office: [phone] Coding Level of Care Code Off vis,new,level 4 Diagnoses GERD (gastroesophageal reflux disease)? K21.9 Epigastric abdominal pain? R10.13 LUQ abdominal pain? R10.12 Gallstones? K80.20 11/05/22 1553 <Electronically signed by Hilda Varela MD> Date Hilda Varela MD
[2022-11-12] MEDS: Lactated Ringers 1,000 ML 15 ML IV (07:30)
--- NOTE | 2022-11-12 08:15 | EGD_PTH ---
PATIENT: ADELINA SADLER LOC: EN U#:[id number] AGE/SX: 62/F ROOM: RE11/12/[address]: Dr. Hilda Varela MD : 1960 BED: DIS: 11/12/2022 SPEC #: [id number] RECD: 11/12/22 10:17 STATUS: BEENA BRENDEN #: [id number] MITCHELL: 11/12/22 08:[address]: Hilda Varela DEPT: SURGICAL PATHOLOGY RECD BY: Siomara Moura ENTERED: 11/12/22 13:05 SP TYPE: EGD BIOPSY OT DR: Dr. Shaneka Brady MD Tissues: A - Pylorus B - Esophagus, NOS Procedures: Special Stain Group II Surgery Specimen Level IV Alcian Blue/PAS (control) HEADER OPERATION: EGD ([facility]), biopsy PRE-OP DIAGNOSIS: GERD, epigastric abdominal pain, LUQ abdominal pain, gallstones TISSUE SUBMITTED: A - Biopsy prepyloric for H. pylori and path, B - Biopsy Gastroesophageal junction MICROSCOPIC DIAGNOSIS A. Stomach, prepyloric region, biopsy: Mild chronic gastritis. See comment. B. Gastroesophageal junction, biopsy: Mild chronic inflammation. Focal goblet cell metaplasia. No evidence of dysplasia. See comment. AM:shyann 11/15/2022 COMMENT A. The results of immunohistochemistry for Helicobacter pylori will be reported separately ([id number]). B. Immunohistochemistry ([id number]) for P53 and Ki-67 will be performed and results will be reported separately. Alcian blue/PAS stain with matched control supports the above diagnosis. MICROSCOPIC DESCRIPTION Slides are reviewed. GROSS DESCRIPTION A - Received in fixative is one container labeled with the patient's name and designated prepyloric. The specimen consists of one irregular fragment of light means soft tissue that measures 0.3 x 0.3 x 0.1 cm. The specimen is totally submitted in one cassette. B - Received in fixative is one container labeled with the patient's name and designated biopsy GE junction. The specimen consists of two irregular fragments of light means soft tissue that in aggregate measure 0.6 x 0.3 x 0.1 cm. The specimen is totally submitted in one cassette. / KAYLEY:shyann 11/12/2022 TC:3 CPT: 30360 x2, 05240
--- NOTE | 2022-11-12 08:15 | IMM_PTH ---
PATIENT: ADELINA SADLER LOC: EN U#:[id number] AGE/SX: 62/F ROOM: RE11/12/[address]: Dr. Hilda Varela MD : 1960 BED: DIS: 11/12/2022 SPEC #: [id number] RECD: 11/12/22 14:04 STATUS: BEENA BRENDEN #: [id number] MITCHELL: 11/12/22 08:[address]: Hilda Varela DEPT: IMMUNOHISTOCHEMISTRY RECD BY: Radha Escobar ENTERED: 11/12/22 14:05 SP TYPE: IMMUNO OTHR DR: Dr. Shaneka Brady MD Tissues: A - Pyloric antrum B - Gastric mucous membrane Procedures: H Pylori (initial) P53 (initial) KI-67 (add) PHYSICIAN & INSTITUTION [place] [id number] SPECIMEN INFORMATION: Tissue Source: A ? Prepyloric biopsy, B ? Gastroesophageal junction biopsy Clinical Info: GERD, epigastric abdominal pain, LUQ abdominal pain, gallstones Specimen Number: [id number] A & B CPT code: 02178 x2, 45635 METHODOLOGY: Deparaffinized sections of prefer/formalin-fixed tissue or PAP/DQ stained slides are incubated with monoclonal/polyclonal antibodies/oligonucleotide probes. Localization is made via biotin free immunoperoxidase method. Appropriate controls are performed and reacted as expected. Results on target cell population are indicated in the following table: RESULTS: ANTIBODY / CLONE RESULT Block A H Pylori (polyclonal) negative Block B P53 (DO-7) negative Ki-67 (30-9) negative These tests were developed and their performance characteristics determined by [facility]. They may not have been cleared or approved by the U.S. Food and Drug Administration. The FDA has determined that such clearance or approval is not necessary. The above immunohistochemical/dualISH markers are ordered and reviewed by the Pathologist. INTERPRETATION: A. Prepyloric biopsy: Negative for Helicobacter pylori organisms. B. Gastroesophageal junction, biopsy: No evidence of dysplasia. AM:shyann 11/16/2022
--- NOTE | 2022-11-12 09:02 | OP.EGD_ITS ---
Patient Name: Deepa Ricardo Procedure Date: 11/12/2022 8:22 AM Date of : 1960 Age: 62 Procedure: Upper GI endoscopy Indications: Heartburn Providers: Hilda Varela MD Referring MD: Hilda Varela MD Medicines: Monitored Anesthesia Care Patient Profile: This is a 62 year old female. Complications: No immediate complications. Procedure: Pre-Anesthesia Assessment: - Prior to the procedure, a History and Physical was performed, and patient medications and allergies were reviewed. The patient's tolerance of previous anesthesia was also reviewed. The risks and benefits of the procedure and the sedation options and risks were discussed with the patient. All questions were answered, and informed consent was obtained. Prior Anticoagulants: The patient has taken no previous anticoagulant or antiplatelet agents. ASA Grade Assessment: Per anesthesia. After reviewing the risks and benefits, the patient was deemed in satisfactory condition to undergo the procedure. After obtaining informed consent, the endoscope was passed under direct vision. Throughout the procedure, the patient's blood pressure, pulse, and oxygen saturations were monitored continuously. The Endoscope was introduced through the mouth, and advanced to the second part of duodenum. The upper GI endoscopy was accomplished without difficulty. The patient tolerated the procedure well. Scope In: 8:32:15 AM Scope Out: 8:39:00 AM Total Procedure Duration Time 0 hours 6 minutes 45 seconds Findings: The Z-line was irregular and was found 35 cm from the incisors. Biopsies were taken with a cold forceps for histology. The examined duodenum was normal. Moderately erythematous mucosa without bleeding was found in the prepyloric region of the stomach. Biopsies were taken with a cold forceps for histology. Biopsies were taken with a cold forceps for Helicobacter pylori cultures. A large amount of food (residue) was found in the gastric body. Impression: - Z-line irregular, 35 cm from the incisors. Biopsied. - Normal examined duodenum. - Erythematous mucosa in the prepyloric region of the stomach. Biopsied. - A large amount of food (residue) in the stomach. Recommendation: - Await pathology results. - Discharge patient to home. - Resume previous diet. - Continue present medications. - Use sucralfate tablets 1 gram PO QID for 2 weeks. Procedure Code(s): --- Professional --- 98364, Esophagogastroduodenoscopy, flexible, transoral; with biopsy, single or multiple Diagnosis Code(s): --- Professional --- K22.8, Other specified diseases of esophagus K31.89, Other diseases of stomach and duodenum R12, Heartburn CPT copyright 2017 [employer]. All rights reserved. The codes documented in this report are preliminary and upon salesperson yard goods review may be revised to meet current compliance requirements. MD Hilda Solano MD 11/12/2022 9:02:18 AM This report has been signed electronically. Number of Addenda: 0 Note Initiated On: 11/12/2022 8:22 AM
--- NOTE | 2022-11-12 09:03 | OP.CCLET_ITS ---
11/12/2022 Shaneka Brady Md Re : Upper GI endoscopy procedure for Deepa Valdez Caitlyn This procedure was performed on Saturday, November 12, 2022. My impressions and recommendations are as follows: Impressions : - Z-line irregular, 35 cm from the incisors. Biopsied. - Normal examined duodenum. - Erythematous mucosa in the prepyloric region of the stomach. Biopsied. - A large amount of food (residue) in the stomach. Recommendations : - Await pathology results. - Discharge patient to home. - Resume previous diet. - Continue present medications. - Use sucralfate tablets 1 gram PO QID for 2 weeks. My findings are described in the full procedure note, which is enclosed. If I can be of further assistance, please feel free to contact me at Doctor phone number(s): , Work: . Sincerely, MD Hilda Solano MD 11/12/2022 9:02:18 AM This report has been signed electronically.
[2022-11-12 09:26] LABS: Bedside Glucose 126 mg/dL (74-106)
== END 2022-11-12 09:55 | disposition home or self-care (01) ==
LOC: EN 06:59 → AC 07:01
PROVIDERS: PCP Internal Medicine; Referring Provider Surgery; Visit Provider Surgery
PROC: 0DJ08ZZ Inspection of Upper Intestinal Tract, Via Natural or Artificial Opening Endoscopic (ICD-10-PCS; CPT 43235; principal; 2022-11-12 08:10)
DX: K80.20 Calculus of gallbladder without cholecystitis without obstruction (principal); E11.9 Type 2 diabetes mellitus without complications; K21.9 Gastro-esophageal reflux disease without esophagitis; R10.13 Epigastric pain; K31.89 Other diseases of stomach and duodenum; K22.89 Other specified disease of esophagus; F32.A Depression, unspecified; F17.210 Nicotine dependence, cigarettes, uncomplicated
CPT/HCPCS: 43239; 82962; 88305; 88313; 88341; 88342; J7120; J2405

== ENCOUNTER → 2023-01-25 | Outpatient (CLI) | payer OTHER, SELFPAY ==
--- NOTE | 2023-01-25 12:52 | NM_ITS ---
CLINICAL: 62-year-old female with history of bezoar. SEMI-SOLID PHASE 99m Tc SULFUR COLLOID GASTRIC EMPTYING STUDY COMPARISON: None available FINDINGS: The patient was administered 1.1 mCi of 99m Tc sulfur colloid mixed with oatmeal and consumed per os. Image acquisitions in the anterior-posterior projections were obtained for 34.74 minutes. There is prompt visualization of the stomach. There is no gastroesophageal reflux identified. The T ? raw data emptying was calculated to be 34.74 minutes, (Normal: 12-56 minutes). NM/Gastric Emptying Study IMPRESSION: 1. NORMAL 99m Tc sulfur colloid semi-solid phase (oatmeal) gastric emptying imaging examination. A. There is normal and preserved semi-solid phase gastric emptying compared to normal controls. (Aaron et al, J Nucl Med Tech 38: 186, 2010). Electronically Signed: Ray Bueno, at 21:05 EDT ,
== END | disposition home or self-care (01) ==
PROVIDERS: PCP Internal Medicine; Referring Provider Nurse Practitioner Adult Health; Visit Provider Nurse Practitioner Adult Health
DX: K31.89 Other diseases of stomach and duodenum (principal)
CPT/HCPCS: 78264; A9541

== ENCOUNTER 2023-04-26 17:35 | Emergency (ER) | payer OTHER, SELFPAY ==
[2023-04-26 17:37] VITALS: BP 203/92; PULSE 67; RESP 24; TEMP 36.2; O2SAT 95; BMI 38.9
[2023-04-26 17:48] VITALS: O2SAT 97
--- NOTE | 2023-04-26 17:53 | EDS_ITS ---
HPI History of Present Illness Chief Complaint: Shortness of Breath Informant: patient Narrative Narrative: 63-year-old female presents to the emergency room with 4 days of cough. Patient states on Tuesday she began to have cough and a hoarse voice along with sore throat. She states that she has coughed so much that her lower right and left rib cage is sore and is worse with movement and cough. She has been taking Mucinex even though Im a diabetic. She notes that she has had a temperature of around 100 degrees during this timeframe as well. No vomiting. She notes diarrhea because of the sugar and the Mucinex. She states that any sugar will give her diarrhea. She denies any rashes. She is a smoker. She denies history of chronic bronchitis or emphysema. [facility] Medical History Anxiety Bladder disease Depression Depression Diabetes Diabetes Dietary restriction Fatty liver Former smoker Gastric reflux History of edema History of stress test Hypertension Injury of head and neck Leg cramps Loss of hearing Migraine headache Osteoarthritis Restless legs Vertigo Wears dentures Wears glasses Home Medications topiramate 25 mg tablet 50 mg PO QHS 05/29/16 [History Last Taken 05/28/16 22:30] atorvastatin 20 mg tablet 40 mg PO QHS 09/13/16 [History Last Taken Unknown] vitamin B complex 1 ea PO DAILY 09/13/16 [History Last Taken Unknown] dulaglutide 1.5 mg/0.5 mL subcutaneous pen injector (Trulicity) 1.5 mg subcut MO 11/04/22 [History Last Taken Unknown] nicotine 21 mg/24 hr daily transdermal patch 1 patch transdermal DAILY 11/04/22 [History Last Taken Unknown] ondansetron 4 mg disintegrating tablet 4 mg PO BID PRN Nausea 11/04/22 [History Last Taken Unknown] venlafaxine 150 mg capsule,extended release 24 hr 150 mg PO DAILY 11/04/22 [History Last Taken Unknown] oxybutynin chloride 5 mg tablet 5 mg PO DAILY 11/11/22 [History Last Taken 11/12/22 06:30] ropinirole 2 mg tablet 2 mg PO QHS 11/11/22 [History Last Taken Unknown] omeprazole 40 mg capsule,delayed release 40 mg PO QAM #90 caps 12/03/22 [Rx Last Taken Unknown] Allergy/AdvReac Type Severity Reaction Status Date / Time Penicillins [PCN] Allergy Unknown Verified 04/26/23 17:37 codeine AdvReac Nausea/Vom/ Verified 04/26/23 17:37 Diarrhea Family History Father Cancer Diabetes Hypertension Daughter Thyroid disorder Seizures Bleeding disorder Surgical History History of bladder repair surgery History of colonoscopy (~2020) History of ear surgery History of facial surgery History of left salpingo-oophorectomy (~1991) History of tonsillectomy Hx of hand surgery Previous section Social History household members: none Smoking Status: Light Smoker (<10/day) substance use type: does not use ROS ROS ED Constitutional Constitutional ED: Reports chills and fever(s); Denies weight loss Eyes Eyes: Denies change in vision or diplopia ENT ENT ED: Reports sore throat; Denies ear pain or rhinorrhea Cardiovascular Cardiovascular: Reports chest pain; Denies orthopnea, palpitations or racing heartbeat Respiratory/Chest Respiratory/Chest: Reports cough, dyspnea and dyspnea on exertion; Denies orthopnea Gastrointestinal Gastrointestinal: Denies abdominal pain, diarrhea, nausea or vomiting Genitourinary Genitourinary ED: Denies dysuria, hematuria or urinary frequency Musculoskeletal Musculoskeletal: Denies arthralgias or myalgias Integumentary Denies abscess or rash Neurologic Neurologic: Denies headache(s) or weakness Psychiatric Psychiatric: Denies anxiety, depression, suicidal ideation or suicidal thoughts Endocrine Endocrinology: Denies polydipsia, polyphagia or polyuria Allergic/Immunologic Allergic/Immunologic ED: Denies mouth swelling, tongue swelling or urticaria EXAM Physical Exam Narrative Exam Narrative: Patient speaks with an apparent hoarse voice (forced expiration). Const Vital Signs: 04/26/23 17:37 04/26/23 17:48 04/26/23 17:58 Temperature 97.2 F L Temperature Source Temporal Pulse Rate 67 67 Respiratory Rate 24 H 16 Respiratory Effort Short of Breath Respiratory Depth Shallow Respiratory Pattern Tachypnea Normal Blood Pressure 203/92 H Blood Pressure Mean 129 Pulse Ox 95 Oxygen Delivery Method Room Air Positive well nourished, well developed and obese General Appearance ED: well developed Nutritional Appearance: obese HEENT Reports normocephalic, head/scalp atraumatic and moist mucous membranes Eyes PERRL and EOMs intact bilaterally Neck no lymphadenopathy, supple and no JVD Chest Wall Chest Narrative: Chest tender to palpation of the anterior mid axillary lower ribs. Resp normal respiratory effort Auscultation: wheezes expiratory wheezes and inspiratory wheezes Cardio regular rate, regular rhythm and no murmurs GI normal to inspection, nondistended, normoactive bowel sounds and non-tender Palpation: soft Back/Spine no CVA tenderness and normal ROM Extremity normal to inspection General Extremety ED: Negative for edema General Extremity: Negative for edema Neuro oriented x3 and CN's II-XII intact bilaterally Sensorium / Orientation: alert Motor Exam: strength 5/5 throughout Psych mental status grossly normal Psych Narrative: Patient peers and anxious. She is stating that she has been choked by the ground though the ground is untied and hanging loosely around her neck. Mood & Affect: Negative for depressed or tearful Skin no rashes or lesions noted and no wounds MDM MDM MDM Narrative Medical decision making narrative: My interpretation of the chest x-ray is no acute process. White count is normal at 6.3 with a hemoglobin of 13.3 platelet count is 217. COVID/influenza test is negative. A dose of Toradol was given for the chest wall pain. Patient received a DuoNeb for her wheezing. Clinically I do not think this is a pulmonary embolism. She is not tachycardic. she is not hypoxic. The chest pain is reproducible. She has not had any recent surgery or trauma. No unilateral leg swelling. No exogenous hormonal use. Given her wheezing and her cough and her fever at home infectious etiology with bronchospasm is more likely. On repeat examination the patient's lung sounds are clear she feels significantly better and is able to take a bit better deeper breath. Her voice is improved. We are going to teach her how to use albuterol MDI with spacer. I will give her dose of prednisone. I do not think that this is bacterial in nature. I think this most likely viral. I will place her on burst dose prednisone and the albuterol MDI. Would recommend ibuprofen for chest pain as well as splinting techniques which were discussed with the patient. We did discuss the effects of prednisone on her diabetes. She may follow-up with primary care return if worsening or concerns. Smoking cessation was discussed with patient Lab Data Attestation: I reviewed the patient's lab results. Labs: Laboratory Results - last 24 hr 04/26/23 18:02 WBC 6.3 RBC 4.56 Hgb 13.6 Hct 42.5 MCV 93.2 MCH 29.8 MCHC 32.0 RDW Std Deviation 44.2 H RDW Coeff of Shyanne 12.9 Plt Count 217 MPV 11.0 Immature Gran % (Auto) 0.300 Neut % (Auto) 61.6 Lymph % (Auto) 22.2 [place] % (Auto) 12.1 H Eos % (Auto) 3.2 Baso % (Auto) 0.6 Absolute Neuts (auto) 3.9 Absolute Lymphs (auto) 1.40 Nucleated RBC % 0 Sodium 142 Potassium 3.5 Chloride 110 H Carbon Dioxide 28.0 Anion Gap 4 L BUN 8 Creatinine 0.58 Estim Creat Clear Calc 79.54 Est GFR (MDRD) Af Amer 136 Est GFR (MDRD) Non-Af 112 BUN/Creatinine Ratio 13.8 Glucose 132 H Calcium 8.9 Radiography Diagnostic Testing: Clinical Impression(s) from Imaging Studies Chest X-Ray 04/26/23 18:22 IMPRESSION: No radiographic evidence of acute cardiopulmonary disease. Electronically Signed: Luc Ramos DO at 18:51 EDT Reading Location ID and State: [address] [place] [address] Tel [phone], Service support , Differential Diagnosis Chest pain/SOB: pulmonary embolism, ACS, pneumothorax, pneumonia, aortic dissection and CHF Discharge Plan Triage Chief Complaint: Shortness of Breath ED Provider: Willard Chisholm Dx/Rx/DC Orders Clinical Impression: Acute bronchitis with bronchospasm, Acute chest wall pain, Diabetes mellitus Instructions: ED Bronchitis with Wheezing (Adult), ED Chest Wall Strain Prescriptions: No Action omeprazole 40 mg capsule,delayed release(DR/EC) 40 mg PO QAM Qty: 90 3RF ondansetron 4 mg tablet,disintegrating 4 mg PO BID PRN (Reason: Nausea) Trulicity 1.5 mg/0.5 mL pen injector 1.5 mg subcut MO Patient Comments: INJECT 1.5 MG SUBCUTANEOUSLY ONE TIME A WEEK. venlafaxine 150 mg capsule,extended release 24hr 150 mg PO DAILY Patient Comments: TAKE 1 CAPSULE BY MOUTH ONCE DAILY nicotine 21 mg/24 hr patch 24 hour 1 patch transdermal DAILY Patient Comments: APPLY 1 PATCH DIRECTED EVERY 24 HOURS. topiramate 25 MG tablet 50 mg PO QHS Patient Comments: MIGRAINE atorvastatin 20 MG tablet 40 mg PO QHS vitamin B complex 1 EACH capsule 1 ea PO DAILY ropinirole 2 mg Tablet 2 mg PO QHS Rx Instructions: administer 1-3 hours before bedtime oxybutynin chloride 5 mg Tablet 5 mg PO DAILY Primary Care Provider: Shaneka Brady Referrals: Shaneka Brady MD [Primary Care Provider] - 1 Week if not improving Activity Restrictions/Additional Instructions: Albuterol inhaler is 2 puffs every 3-4 hours and as needed for shortness of breath. Please stop smoking You may notice with the prednisone you have more energy, he may have some water weight gain, you may feel more hungry, and your blood sugars will be elevated off baseline. Please take the medication earlier in the day as it can make you stay up at night. Disposition Disposition: Home, Self Care
[2023-04-26] MEDS: Ipratropium/Albuterol Sulfate 3 ML AMPUL.NEB INHALATION (17:56)
[2023-04-26 17:58] VITALS: PULSE 67; RESP 16
[2023-04-26] MEDS: Ketorolac 30 MG/ML Syringe IV (18:16)
--- NOTE | 2023-04-26 18:22 | RAD_ITS ---
INDICATION: cough EXAMINATION/TECHNIQUE: X-RAY - XR Chest 1 View COMPARISON: March 17, 2015 FINDINGS: LINES/DEVICES: None. LUNGS: No consolidation, edema or effusion. No pneumothorax. MEDIASTINUM AND CARDIOVASCULAR STRUCTURES: Cardiac silhouette not enlarged. Central airways and mediastinal contour are unremarkable. BONES AND SOFT TISSUES: Unremarkable. RAD/Chest 1 View (Portable) IMPRESSION: No radiographic evidence of acute cardiopulmonary disease. Electronically Signed: Luc Ramos DO at 18:51 EDT ,
[2023-04-26 18:31] LABS: Absolute Neutrophil Count 3.9 X10^3/uL (2.0-7.7); Basophil# 0.04 X10^3/uL; Basophil% 0.6 % (0-1); Eosinophils% 3.2 % (0-5); Hematocrit 42.5 % (37-47); Hemoglobin 13.6 g/dL (12.0-15.0); Lymphocyte % 22.2 % (19-41); Mean Corpuscular Hgb 29.8 pg (27.0-32.0); Mean Corpuscular Volume 93.2 fL (81-99); Monocyte# 0.76 X10^3/uL; Monocyte% 12.1 % (0-10); NRBC Flagged by Analyzer 0 % (0-5); Neutrophil # 3.88 X10^3/uL (2.7-7.7); Neutrophil % 61.6 % (47-70); Platelet Count 217 K/mm3 (150-450); RBC Distribution Width CV 12.9 % (11.6-14.6); RBC Distribution Width SD 44.2 fl (35.1-43.9); Red Blood Count 4.56 M/mm3 (4.2-5.4); White Blood Count 6.3 K/mm3 (4.4-11.0)
[2023-04-26 18:45] LABS: Anion Gap 4 (5-15); BUN 8 mg/dL (7-18); BUN/Creat Ratio 13.8 RATIO (10-20); Calcium,Total 8.9 mg/dL (8.5-10.1); Chloride 110 mmol/L (98-107); Creatinine, Serum 0.58 mg/dL (0.55-1.02); EST Glomerular Filtration Rate 112 mL/min (>60); Est Glom Filt Rate - Afr Amer 136 mL/min (>60); Estimated Creatinine Clearance 79.54 ml/min; Glucose 132 mg/dL (74-106); Potassium 3.5 mmol/L (3.5-5.1); Sodium Level 142 mmol/L (136-145)
[2023-04-26] MEDS: Albuterol Sulfate 8 gm Inhaler (60 puffs) 2 PUFF INHALATION (19:50)
[2023-04-26] MEDS: INHALER, ASSIST DEVICES 1 EACH SPACER INHALATION (19:51)
[2023-04-26] MEDS: predniSONE 20 MG Tablet 60 MG PO (19:57)
[2023-04-26 20:00] VITALS: PULSE 75; RESP 18; O2SAT 94
== END 2023-04-26 20:01 | disposition home or self-care (01) ==
PROVIDERS: Emergency Provider Emergency Medicine; PCP Internal Medicine; Visit Provider Emergency Medicine
DX: J20.9 Acute bronchitis, unspecified (principal); E11.9 Type 2 diabetes mellitus without complications; F17.200 Nicotine dependence, unspecified, uncomplicated; I10 Essential (primary) hypertension; R07.89 Other chest pain; G43.909 Migraine, unspecified, not intractable, without status migrainosus; Z79.85 Long-term (current) use of injectable non-insulin antidiabetic drugs; F41.9 Anxiety disorder, unspecified; F32.A Depression, unspecified; Z79.899 Other long term (current) drug therapy; G25.81 Restless legs syndrome; K21.9 Gastro-esophageal reflux disease without esophagitis
CPT/HCPCS: 71045; 80048; 85025; 87428; 99283; A4216

== ENCOUNTER 2024-07-25 17:53 | Emergency (ER) | payer OTHER, SELFPAY ==
[2024-07-25 17:55] VITALS: BP 166/91; PULSE 84; RESP 16; TEMP 36.3; O2SAT 99; BMI 33.5
--- NOTE | 2024-07-25 20:11 | EDS_ITS ---
HPI History of Present Illness Chief Complaint: Ear Problem Informant: patient Narrative Narrative: 64-year-old female presenting to the emergency room with bloody drainage from the left ear. Patient states that she is on an antibiotic but is unsure of the name. She started this 3 days ago for otitis media bilaterally. She states that today she noted drainage coming from the left ear and realized that it was blood. She has had prior mastoid surgeries seeing Dr. Beck locally as well as ENT at other campuses. Patient denies any fevers. She states she does not really note any change in hearing and notes really no change in ear pain. [facility] Medical History Loss of hearing Wears glasses Wears dentures Depression Anxiety Diabetes Bladder disease Fatty liver Restless legs Migraine headache Injury of head and neck Vertigo Dietary restriction Gastric reflux Former smoker Leg cramps History of edema History of stress test Hypertension Depression Osteoarthritis Diabetes Medical History unable to obtain Home Medications ?Medication ?Instructions ?Recorded ?Last Taken ?Type topiramate 25 mg tablet 50 mg PO QHS 05/29/16 05/28/16 22:30 History atorvastatin 20 mg tablet 40 mg PO QHS 09/13/16 Unknown History vitamin B complex 1 ea PO DAILY 09/13/16 Unknown History dulaglutide 1.5 mg/0.5 mL 1.5 mg subcut MO 11/04/22 Unknown History subcutaneous pen injector (Trulicity) nicotine 21 mg/24 hr daily 1 patch transdermal DAILY 11/04/22 Unknown History transdermal patch ondansetron 4 mg disintegrating 4 mg PO BID PRN Nausea 11/04/22 Unknown History tablet venlafaxine 150 mg 150 mg PO DAILY 11/04/22 Unknown History capsule,extended release 24 hr oxybutynin chloride 5 mg tablet 5 mg PO DAILY 11/11/22 11/12/22 06:30 History ropinirole 2 mg tablet 2 mg PO QHS 11/11/22 Unknown History omeprazole 40 mg capsule,delayed 40 mg PO QAM #90 caps 12/03/22 Unknown Rx release prednisone 20 mg tablet 60 mg (3 x 20 mg) PO DAILY #12 04/26/23 Unknown Rx TABLETS Allergy/AdvReac Type Severity Reaction Status Date / Time Penicillins (PCN) Allergy Unknown Verified 07/25/24 17:55 codeine AdvReac Nausea/Vom/ Verified 07/25/24 17:55 Diarrhea Family History Father Cancer Diabetes Hypertension Daughter Thyroid disorder Seizures Bleeding disorder Surgical History History of colonoscopy (~2020) History of left salpingo-oophorectomy (~1991) History of bladder repair surgery Hx of hand surgery History of facial surgery History of ear surgery History of tonsillectomy Previous section Social History household members: none Smoking Status: Light Smoker (<10/day) substance use type: does not use ROS ROS ED Constitutional Constitutional ED: Denies chills or weight loss Eyes Eyes: Denies change in vision or diplopia ENT ENT ED: Reports ear pain, rhinorrhea and other Details: Bloody drainage left ear ; Denies sore throat Cardiovascular Cardiovascular: Denies chest pain, orthopnea, palpitations or racing heartbeat Respiratory/Chest Respiratory/Chest: Denies cough, dyspnea or orthopnea Gastrointestinal Gastrointestinal: Denies abdominal pain, diarrhea, nausea or vomiting Genitourinary Genitourinary ED: Denies dysuria, hematuria or urinary frequency Musculoskeletal Musculoskeletal: Denies arthralgias or myalgias Integumentary Denies abscess or rash Neurologic Neurologic: Denies headache(s) or weakness Psychiatric Psychiatric: Denies anxiety, depression, suicidal ideation or suicidal thoughts Endocrine Endocrinology: Denies polydipsia, polyphagia or polyuria Allergic/Immunologic Allergic/Immunologic ED: Denies mouth swelling, tongue swelling or urticaria EXAM Physical Exam Const Vital Signs: 07/25/24 17:55 Temperature 97.4 F L Temperature Source Temporal Pulse Rate 84 Respiratory Rate 16 Blood Pressure 166/91 H Blood Pressure Mean 116 Pulse Ox 99 Oxygen Delivery Method Room Air Positive well nourished and well developed General Appearance ED: well developed HEENT Reports normocephalic, head/scalp atraumatic and moist mucous membranes HEENT Narrative: There is dried blood on the external ear and ear canal. There is fresh blood noted at the 10 o'clock position of the tympanic membrane where there appears to be a hole. I see fluid coming from the hole when she performs a closed Valsalva. I do not appreciate any mastoid tenderness or overlying erythe ma/swelling. Eyes PERRL and EOMs intact bilaterally Neck no lymphadenopathy, supple and no JVD Resp normal respiratory effort and clear to auscultation bilaterally Cardio regular rate, regular rhythm and no murmurs GI normal to inspection, nondistended, normoactive bowel sounds and non-tender Palpation: soft Back/Spine no CVA tenderness and normal ROM Extremity normal to inspection General Extremety ED: Negative for edema General Extremity: Negative for edema Neuro oriented x3 and CN's II-XII intact bilaterally Sensorium / Orientation: alert Motor Exam: strength 5/5 throughout Psych mental status grossly normal Mood & Affect: Negative for depressed or tearful Skin no rashes or lesions noted and no wounds MDM MDM MDM Narrative Medical decision making narrative: Differential diagnosis includes otitis externa otitis media tympanic membrane perforation mastoiditis ear canal trauma Patient will use some ciprofloxacin drops. Would recommend ENT follow-up. Continue oral antibiotic return if worsening or concerns. Patient is advised that the hole in her tympanic membrane should close over but occasionally it does not thus necessitating somebody to evaluate the eardrum in near future. History & Record Review Discussion w/independent historian: Patient Lab Data Attestation: I reviewed the patient's lab results. Discharge Plan Triage Chief Complaint: Ear Problem ED Provider: Willard Chisholm Dx/Rx/DC Orders Clinical Impression: Acute otitis media of left ear with perforation Instructions: ED PERFORATED TM Infected [Adult] Prescriptions: No Action omeprazole 40 mg capsule,delayed release(DR/EC) 40 mg PO QAM Qty: 90 3RF ondansetron 4 mg tablet,disintegrating 4 mg PO BID PRN (Reason: Nausea) Trulicity 1.5 mg/0.5 mL pen injector 1.5 mg subcut MO Patient Comments: INJECT 1.5 MG SUBCUTANEOUSLY ONE TIME A WEEK. venlafaxine 150 mg capsule,extended release 24hr 150 mg PO DAILY Patient Comments: TAKE 1 CAPSULE BY MOUTH ONCE DAILY nicotine 21 mg/24 hr patch 24 hour 1 patch transdermal DAILY Patient Comments: APPLY 1 PATCH DIRECTED EVERY 24 HOURS. topiramate 25 MG tablet 50 mg PO QHS Patient Comments: MIGRAINE atorvastatin 20 MG tablet 40 mg PO QHS vitamin B complex 1 EACH capsule 1 ea PO DAILY ropinirole 2 mg Tablet 2 mg PO QHS Rx Instructions: administer 1-3 hours before bedtime oxybutynin chloride 5 mg Tablet 5 mg PO DAILY prednisone 20 mg tablet 60 mg PO DAILY Qty: 12 0RF Stand Alone Forms: ED Work / School Excuse Primary Care Provider: Shaneka Brady Referrals: Shaneka Brady MD [Primary Care Provider] - Mohsen Beck MD [Med Staff - Active Staff] - 1-2 Weeks Activity Restrictions/Additional Instructions: Eardrops are 4 drops twice daily x 7 days Do not allow water from a shower into the ear (use a cottonball) Print Language: Icelandic Disposition Disposition: Home, Self Care Discharge Date/Time: 07/25/24 20:21
[2024-07-25] MEDS: Ciprofloxacin 0.3% 2.5ml Bottle 4 DRP LEFT EAR (20:16)
== END 2024-07-25 20:21 | disposition home or self-care (01) ==
PROVIDERS: Emergency Provider Emergency Medicine; PCP Internal Medicine; Referring Provider Emergency Medicine; Visit Provider Emergency Medicine
DX: H66.92 Otitis media, unspecified, left ear (principal); E11.9 Type 2 diabetes mellitus without complications; I10 Essential (primary) hypertension; F17.200 Nicotine dependence, unspecified, uncomplicated; F41.9 Anxiety disorder, unspecified; F32.A Depression, unspecified
CPT/HCPCS: 99282

== ENCOUNTER 2024-11-16 07:22 | Emergency (ER) | payer OTHER, SELFPAY ==
[2024-11-16 07:23] VITALS: BP 164/86; PULSE 76; RESP 20; TEMP 37.2; O2SAT 98; BMI 35.4
--- NOTE | 2024-11-16 07:39 | EX.ED.DYSGE1 ---
HPI History of Present Illness Chief Complaint: General Illness Informant: patient Narrative Narrative: 64-year-old female presenting to the emergency room stating that she was sick. Patient states that last Tuesday she developed some ear pain and then subsequently developed cough and sore throat. Symptoms seem abruptly worse over the past 48 to 72 hours. She notes the occasional sputum. She is a smoker but denies a smoker's cough or any known lung issues. She denies fever. She notes her voice is hoarse. She states she has difficulty hearing. She has not seen anybody for this. She denies diarrhea. She notes generalized headache and bodyaches. [facility] Medical History Loss of hearing Wears glasses Wears dentures Depression Anxiety Diabetes Bladder disease Fatty liver Restless legs Migraine headache Injury of head and neck Vertigo Dietary restriction Gastric reflux Former smoker Leg cramps History of edema History of stress test Hypertension Depression Osteoarthritis Diabetes Home Medications ?Medication ?Instructions ?Recorded ?Last Taken ?Type topiramate 25 mg tablet 50 mg PO QHS 05/29/16 05/28/16 22:30 History atorvastatin 20 mg tablet 40 mg PO QHS 09/13/16 Unknown History vitamin B complex 1 ea PO DAILY 09/13/16 Unknown History dulaglutide 1.5 mg/0.5 mL 1.5 mg subcut MO 11/04/22 Unknown History subcutaneous pen injector (Trulicity) nicotine 21 mg/24 hr daily 1 patch transdermal DAILY 11/04/22 Unknown History transdermal patch ondansetron 4 mg disintegrating 4 mg PO BID PRN Nausea 11/04/22 Unknown History tablet venlafaxine 150 mg 150 mg PO DAILY 11/04/22 Unknown History capsule,extended release 24 hr oxybutynin chloride 5 mg tablet 5 mg PO DAILY 11/11/22 11/12/22 06:30 History ropinirole 2 mg tablet 2 mg PO QHS 11/11/22 Unknown History omeprazole 40 mg capsule,delayed 40 mg PO QAM #90 caps 12/03/22 Unknown Rx release prednisone 20 mg tablet 60 mg (3 x 20 mg) PO DAILY #12 04/26/23 Unknown Rx TABLETS albuterol sulfate 90 mcg/actuation 2 puff inhalation Q4H PRN PRN 11/16/24 Unknown Rx aerosol inhaler (Ventolin HFA) Wheezing ##1 azithromycin 250 mg tablet See Rx Instructions PO .COMPLEX #6 11/16/24 Unknown Rx (Zithromax Z-Luca) tabs prednisone 20 mg tablet 60 mg (3 x 20 mg) PO DAILY #15 11/16/24 Unknown Rx TABLETS Allergy/AdvReac Type Severity Reaction Status Date / Time Penicillins (PCN) Allergy Unknown Verified 11/16/24 07:24 codeine AdvReac Nausea/Vom/ Verified 11/16/24 07:24 Diarrhea Family History Father Cancer Diabetes Hypertension Daughter Thyroid disorder Seizures Bleeding disorder Surgical History History of colonoscopy (~2020) History of left salpingo-oophorectomy (~1991) History of bladder repair surgery Hx of hand surgery History of facial surgery History of ear surgery History of tonsillectomy Previous section Social History household members: none Smoking Status: Current every day smoker tobacco type: cigarettes substance use type: does not use ROS ROS ED Constitutional Constitutional ED: Reports chills and sweats; Denies weight loss Eyes Eyes: Denies change in vision or diplopia ENT ENT ED: Reports ear pain, sore throat and other Details: Decreased hearing bilaterally. Hoarse voice ; Denies rhinorrhea Cardiovascular Cardiovascular: Denies chest pain, orthopnea, palpitations or racing heartbeat Respiratory/Chest Respiratory/Chest: Reports cough and sputum; Denies dyspnea or orthopnea Gastrointestinal Gastrointestinal: Denies abdominal pain, diarrhea, nausea or vomiting Genitourinary Genitourinary ED: Denies dysuria, hematuria or urinary frequency Musculoskeletal Musculoskeletal: Reports myalgias; Denies arthralgias Integumentary Denies abscess or rash Neurologic Neurologic: Reports headache(s); Denies weakness Psychiatric Psychiatric: Denies anxiety, depression, suicidal ideation or suicidal thoughts Endocrine Endocrinology: Denies polydipsia, polyphagia or polyuria Allergic/Immunologic Allergic/Immunologic ED: Denies mouth swelling, tongue swelling or urticaria EXAM Physical Exam Const Vital Signs: 11/16/24 07:23 11/16/24 07:39 11/16/24 07:50 Temperature 99 F Temperature Source Temporal Pulse Rate 76 Respiratory Rate 20 H Respiratory Pattern Normal Blood Pressure 164/86 H Blood Pressure Mean 112 Pulse Ox 98 98 Oxygen Delivery Method Room Air Room Air 11/16/24 07:50 Temperature Temperature Source Pulse Rate 68 Respiratory Rate 20 H Respiratory Pattern Blood Pressure Blood Pressure Mean Pulse Ox Oxygen Delivery Method Positive well nourished and well developed General Appearance ED: well developed and NAD HEENT Reports normocephalic, head/scalp atraumatic and moist mucous membranes HEENT Narrative: No significant oropharyngeal erythema or exudate. No swelling to suggest abscess. No significant lymphadenopathy. There is a significant wax bilaterally from the tympanic membranes that I can visualize they do not appear erythematous or bulging. Handling secretions normally. Voice does appear slightly hoarse but very understandable. Eyes PERRL and EOMs intact bilaterally Neck no lymphadenopathy, supple and no JVD Resp normal respiratory effort Auscultation: rhonchi lower bilaterally and wheezes expiratory wheezes Cardio regular rate, regular rhythm and no murmurs GI normal to inspection, nondistended, normoactive bowel sounds and non-tender Palpation: soft Back/Spine no CVA tenderness and normal ROM Extremity normal to inspection General Extremety ED: Negative for edema General Extremity: Negative for edema Neuro oriented x3 and CN's II-XII intact bilaterally Sensorium / Orientation: alert Motor Exam: strength 5/5 throughout Psych mental status grossly normal Mood & Affect: Negative for depressed or tearful Skin no rashes or lesions noted and no wounds MDM MDM MDM Narrative Medical decision making narrative: Differential diagnosis includes but not limited to otitis media sinusitis pharyngitis viral and bacterial laryngitis pneumonia bronchitis bronchospasm COPD exacerbation/emphysema My independent interpretation of the chest x-ray is no acute process. COVID influenza and RSV swabs were negative. Patient was treated with a DuoNeb. Unwilling to be placing her on burst dose prednisone as well as albuterol MDI. I will also write for azithromycin. Explained to her that there is a high probability that this is all viral. However given her long-term tobacco use a possible bacterial component cannot be ruled out. I will write for azithromycin. Patient to follow-up with primary care. She states she needs a work note for the day. History & Record Review Discussion w/independent historian: Patient Lab Data Attestation: I reviewed the patient's lab results. Radiography Diagnostic Testing: Clinical Impression(s) from Imaging Studies Chest X-Ray 11/16/24 08:00 IMPRESSION: NO ACUTE FINDINGS. Reading Location: [place] [id number] Discharge Plan Triage Chief Complaint: General Illness ED Provider: Willard Chisholm Dx/Rx/DC Orders Clinical Impression: Laryngitis, Acute bronchitis with bronchospasm, Tobacco use Instructions: ED Bronchitis with Wheezing (Adult), ED Laryngitis Prescriptions: New prednisone 20 mg tablet 60 mg PO DAILY Qty: 15 0RF albuterol sulfate [Ventolin HFA] 90 mcg/actuation HFA aerosol inhaler 2 puff inhalation Q4H PRN PRN (Reason: Wheezing) Qty: 1 0RF Rx Instructions: dispense with spacer azithromycin [Zithromax Z-Luca] 250 mg tablet See Rx Instructions .ROUTE .COMPLEX Qty: 6 0RF Rx Instructions: For 250 mg dose pack: take 500 mg today (day 1), then 250 mg for 4 days (days 2-5) No Action omeprazole 40 mg capsule,delayed release(DR/EC) 40 mg PO QAM Qty: 90 3RF ondansetron 4 mg tablet,disintegrating 4 mg PO BID PRN (Reason: Nausea) Trulicity 1.5 mg/0.5 mL pen injector 1.5 mg subcut MO Patient Comments: INJECT 1.5 MG SUBCUTANEOUSLY ONE TIME A WEEK. venlafaxine 150 mg capsule,extended release 24hr 150 mg PO DAILY Patient Comments: TAKE 1 CAPSULE BY MOUTH ONCE DAILY nicotine 21 mg/24 hr patch 24 hour 1 patch transdermal DAILY Patient Comments: APPLY 1 PATCH DIRECTED EVERY 24 HOURS. topiramate 25 MG tablet 50 mg PO QHS Patient Comments: MIGRAINE atorvastatin 20 MG tablet 40 mg PO QHS vitamin B complex 1 EACH capsule 1 ea PO DAILY ropinirole 2 mg Tablet 2 mg PO QHS Rx Instructions: administer 1-3 hours before bedtime oxybutynin chloride 5 mg Tablet 5 mg PO DAILY prednisone 20 mg tablet 60 mg PO DAILY Qty: 12 0RF Primary Care Provider: Shaneka Brady Referrals: Shaneka Brady MD [Primary Care Provider] - 3-5 Days if not improving Print Language: Ethiopian Disposition Disposition: Home, Self Care
[2024-11-16] MEDS: Ipratropium/Albuterol Sulfate 3 ML AMPUL.NEB INHALATION (07:48)
[2024-11-16 07:50] VITALS: PULSE 68; RESP 20; O2SAT 98
--- NOTE | 2024-11-16 08:00 | RAD_ITS ---
PROCEDURE: CHEST PA AND LATERAL 11/16/2024 REASON FOR EXAM: COUGH Body aches. TECHNIQUE: Frontal and lateral views of the chest. COMPARISON: None FINDINGS: Hardware: None Heart: The heart size is normal.. Calcification of the aortic arch. Mediastinum: The mediastinal contour is stable. Lungs: The lungs are clear. Bones: Degenerative changes are identified within the thoracic spine. RAD/Chest PA and Lateral IMPRESSION: NO ACUTE FINDINGS. Reading Location: [facility]
[2024-11-16 08:58] VITALS: BP 124/76; PULSE 77; RESP 18; TEMP 37.1; O2SAT 95
== END 2024-11-16 08:59 | disposition home or self-care (01) ==
PROVIDERS: Emergency Provider Emergency Medicine; PCP Internal Medicine; Visit Provider Emergency Medicine
DX: J04.0 Acute laryngitis (principal); E11.9 Type 2 diabetes mellitus without complications; J20.9 Acute bronchitis, unspecified; I10 Essential (primary) hypertension; R51.9 Headache, unspecified; F17.210 Nicotine dependence, cigarettes, uncomplicated
CPT/HCPCS: 71046; 87631; 94640; 99282